=== PATIENT | female | born 1980 | race Caucasian/White ===

== ENCOUNTER 2018-04-13 06:35 | Day surgery (SDC) | payer MEDICAID ==
[2018-04-13] VITALS (11 sets, daily range): BP systolic 104–126; BP diastolic 68–83; PULSE 54–88; RESP 17–24; Ht 157.5 cm; Wt 70.7 kg
[~2018-04-13] VITALS: Ht 157.5 cm; Wt 70.7 kg
[2018-04-13] MEDS ORDERED: SOD CHLORIDE 0.9% 1,000 ML IV SCH (07:00)
[2018-04-13] MEDS ORDERED: CEFAZOLIN 2 GM/50 ML (PMX) 50 ML IVPB SCH (07:00)
[2018-04-13] MEDS ORDERED: BUPIVACAINE 0.5%/EPI (SDV) 30 ML INJ ONE (07:43)
--- NOTE | 2018-04-13 07:47 | PREAC ---
Date/Time of Note Date/Time of Note DATE: 04/13/18 TIME: 07:46 Anesthesia Eval and Record Evaluation Time Pre-Procedure Interview DATE: 04/13/18 TIME: 07:46 Age 38 Sex female NPO: 8 hrs Preoperative diagnosis L breast mass Planned procedure L partial mastectomy Past Medical History Past Medical History: None Surgery & Anesthesia Issues No known issue Meds Anticoagulation: No Beta Yaneli within 24 hr: No Reason Beta Yaneli not given: Pt. not on B-Yaneli Current Medications Cefazolin Sodium/ Dextrose 50 ml @ 100 mls/hr ONCE IVPB ; Start 04/13/18 at 07:00; Stop 04/13/18 at 10:00 Sodium Chloride 1,000 ml @ 75 mls/hr [id number] IV ; Start 04/13/18 at 07:00 Meds reviewed: Yes Allergies Coded Allergies: No Known Allergy (Unverified , 04/12/18) Allergies Reviewed: Yes Labs/Studies Labs Reviewed: Reviewed by anesthesiologist test: Negative Studies: ECG Pre-procedure Exam Airway: Adequate mouth opening, Adequate thyromental dist Mallampati: Mallampati II Teeth: Normal Lung: Normal Heart: Normal ASA Physical Status ASA physical status: 2 Emergency: None Planned Anesthetic General/MAC: ETT Pre-operative Attestations Prior to commencing anesthesia and surgery, the patient was re-evaluated, there was verification of: *The patient's identity *The results of appropriate recent lab work and preoperative vital signs *The above evaluation not changing prior to induction *Anesthetic plan, risk benefits, alternative and complications discussed with patient/family; questions answered; patient/family understands, accepts and wishes to proceed. DEL FLOOD Apr 13, 2018 07:46
[2018-04-13] MEDS ORDERED: FENTAnyl 50 MCG/ML VIAL IV PRN ×3 (08:00)
[2018-04-13] MEDS ORDERED: DIPHENHYDRAMINE 50 MG INJ IV PRN (08:00)
[2018-04-13] MEDS ORDERED: ALBUTEROL 0.083% (NEB) 2.5 MG/3 ML AMP HHN PRN (08:00)
[2018-04-13] MEDS ORDERED: ONDANSETRON 4 MG INJ IV PRN (08:00)
[2018-04-13] MEDS ORDERED: MEPERIDINE 25 MG INJ IV PRN (08:00)
[2018-04-13] MEDS ORDERED: OXYCODONE/ACETAMINOPHEN (5/325) TAB PO PRN (08:00)
[2018-04-13] MEDS ORDERED: METOCLOPRAMIDE 10 MG INJ IV PRN (08:00)
[2018-04-13] MEDS ORDERED: HYDROmorphONE 1 MG/5 ML IV SYRINGE IV PRN ×3 (08:00)
[2018-04-13] MEDS ORDERED: FENTAnyl 50 MCG/ML VIAL ONE (08:39)
[2018-04-13] MEDS ORDERED: ROCURONIUM 50 MG INJ ONE (08:50)
[2018-04-13] MEDS ORDERED: SUCCINYLCHOLINE CHLORIDE 100 MG/5 ML SYG IV ONE (08:50)
[2018-04-13] MEDS ORDERED: NEOSTIGMINE 3 MG/3 ML SYRINGE ONE (08:50)
[2018-04-13] MEDS ORDERED: GLYCOPYRROLATE 0.4 MG INJ ONE (08:50)
[2018-04-13] MEDS ORDERED: LIDOCAINE 100 MG SYRINGE ONE (08:50)
[2018-04-13] MEDS ORDERED: PROPOFOL 20 ML ONE (08:50)
[2018-04-13] MEDS ORDERED: CEFAZOLIN 1 GM INJ ONE (08:50)
--- NOTE | 2018-04-13 09:28 | SIPON ---
Date/Time of Note Date/Time of Note DATE: 04/13/18 TIME: 09:27 Operative Report Preoperative Diagnosis Left breast mass Postoperative Diagnosis Same Operation/Procedure Performed Excision of left breast mass Surgeon see signature line food and beverage assistant Dr Freeman Anesthesia: general Estimated blood loss: 0 - 10 ml's Transfusion Required none Specimen Left breast mass Grafts/Implants none Complications none YOUNG VÁSQUEZ MD Apr 13, 2018 09:28
[2018-04-13] MEDS ORDERED: HYDROCODONE/APAP (7.5/325) TAB PO PRN ×2 (09:30→10:00)
--- NOTE | 2018-04-13 09:39 | OPR ---
DATE OF OPERATION: 04/13/2018 PREOPERATIVE DIAGNOSIS: Approximately 3 cm left breast mass at 12 o'clock. POSTOPERATIVE DIAGNOSIS: Approximately 3 cm left breast mass at 12 o'clock. PROCEDURE PERFORMED: Excision of left breast mass. ANESTHESIA: General. ANESTHESIOLOGIST: Dr. Zuniga. SURGEON: Dr. Leal. RAT FARMER: Dr. Freeman. INDICATIONS FOR PROCEDURE: The patient is a 38-year-old female who presented with a painful palpable mass at 3 o'clock in her left breast. Radiographically, it appeared to be a benign etiology such as fibroadenoma or benign phyllodes tumor. The patient was counseled as to the benefit of excision. S he consented and was scheduled for surgery. DESCRIPTION OF PROCEDURE: The patient was brought to the operating theater, placed under general ane sthesia. The left breast was prepped and draped in the usual sterile fashion. A curvilinear incisio n was made directly over the left breast from approximately the 11 o'clock to 1 o'clock location, emily roximately 3 cm from the nipple-areolar border. Subcutaneous tissue was dissected with cautery. Julianna p within the breast parenchyma, a well-circumscribed mass was identified. It was enucleated with a g loved finger, transected, removed and sent for permanent pathologic analysis. The wound was then irr igated. Residual bleeding was controlled with cautery. The skin was then reapproximated with a deep dermal layer of 4-0 Vicryl sutures in interrupted fashion, followed by final skin approximation with 5-0 PDS sutures in subcuticular fashion, and benzoin and Steri-Strips were applied. The patient negrita erated the procedure well. Estimated blood loss was 20 mL. There were no complications and the tej ent was transported in stable condition to the recovery room. Dictated By: YOUNG BOATENG/DANNY Conf#: [id number] DID#: [id number]
--- NOTE | 2018-04-13 14:51 | PAC ---
Date/Time of Note Date/Time of Note DATE: 04/13/18 TIME: 14:51 Post-Anesthesia Notes Post-Anesthesia Note Last documented vital signs Vital Signs Date Temp Pulse Resp B/P (MAP) Pulse Ox O2 O2 Flow FiO2 Time Delivery Rate 04/13/18 97.0 57 18 123/81 100 Room Air 10:59 (95) Activity: WNL Respiratory function: WNL Cardiovascular function: WNL Mental status: Baseline Pain reasonably controlled: Yes Hydration appropriate: Yes Nausea/Vomiting absent: Yes DEL FLOOD Apr 13, 2018 14:51
== END 2018-04-13 11:02 | disposition home or self-care (01) ==
LOC: SDS 06:35
PROVIDERS: ATTEND Surgery Surgical Oncology
DX: D24.2 Benign neoplasm of left breast (principal)
CPT/HCPCS: 19120; 84703; J0690; J1170; J1200; J2001; J2405; J2710; J3010; Z7610; 88307